=== PATIENT | female | born 1940 | race Asian ===

== ENCOUNTER 2016-12-12 07:40 | Outpatient (CLI) | payer OTHER ==
[~2016-12-12 07:40] MED LIST: ASA LOW STR81 MG PO; LEVOTHROID50 MCG OR; LISITAB PO; NAPR500T40 PO; OMEPRAZOLE40 MG OR; OXYB5TAB56 PO; ULTRACET1 TAB OR
[2016-12-12 08:40] LABS: PLATELET COUNT 190 K/uL (152-353)
[2016-12-12 09:05] LABS: POTASSIUM 3.7 mmol/L (3.6-5.2); SODIUM 140 mmol/L (136-145)
== END 2016-12-12 19:43 | disposition home or self-care (01) ==
LOC: LABW 07:40
PROVIDERS: Internal Medicine
DX: E11.9 Type 2 diabetes mellitus without complications (principal)
CPT/HCPCS: 36415; 80053; 80061; 83036; 84443; 85027

== ENCOUNTER 2017-01-10 08:44 | Outpatient (CLI) | payer OTHER | END 2017-01-10 19:08 | disposition home or self-care (01) | LOC: LABW 08:44 | DX: Z86.010 Personal history of colon polyps (principal) | CPT/HCPCS: 82272 ==

== ENCOUNTER 2017-02-13 10:21 | Outpatient (CLI) | payer OTHER | END 2017-02-13 19:16 | disposition home or self-care (01) | LOC: RAD 10:21 | DX: M25.551 Pain in right hip (principal); M25.552 Pain in left hip; M54.5 Low back pain ==

== ENCOUNTER 2017-02-19 11:23 | Outpatient (CLI) | payer OTHER | END 2017-02-19 12:30 | disposition home or self-care (01) | LOC: LABW 11:23 | DX: B35.1 Tinea unguium (principal) | CPT/HCPCS: 36415; 84450; 84460 ==

== ENCOUNTER 2017-02-24 09:00 | Outpatient (CLI) | payer OTHER ==
[2017-02-24 09:11] LABS: PLATELET COUNT 182 K/uL (152-353)
== END 2017-02-24 10:05 | disposition home or self-care (01) ==
LOC: LABW 09:00
PROVIDERS: Internal Medicine Hematology & Oncology
DX: D64.89 Other specified anemias (principal)
CPT/HCPCS: 36415; 85027

== ENCOUNTER 2017-03-31 08:04 | Outpatient (CLI) | payer OTHER | END 2017-03-31 09:05 | disposition home or self-care (01) | LOC: LABW 08:04 | DX: B35.1 Tinea unguium (principal) | CPT/HCPCS: 36415; 84450; 84460 ==

== ENCOUNTER 2017-05-05 08:15 | Outpatient (CLI) | payer OTHER ==
[2017-05-05 08:42] LABS: PLATELET COUNT 206 K/uL (152-353)
[2017-05-05 09:09] LABS: POTASSIUM 3.5 mmol/L (3.6-5.2)
== END 2017-05-05 19:29 | disposition home or self-care (01) ==
LOC: LABW 08:15
PROVIDERS: Internal Medicine
DX: E11.9 Type 2 diabetes mellitus without complications (principal); E03.8 Other specified hypothyroidism
CPT/HCPCS: 36415; 80053; 80061; 81000; 82043; 82570; 83036; 84439; 84443; 85027

== ENCOUNTER 2017-05-30 08:57 | Outpatient (CLI) | payer OTHER | END 2017-05-30 10:30 | disposition home or self-care (01) | LOC: MAMMO 08:57 | DX: Z12.31 Encounter for screening mammogram for malignant neoplasm of breast (principal) ==

== ENCOUNTER 2017-08-25 09:19 | Outpatient (CLI) | payer OTHER ==
[2017-08-25 09:36] LABS: PLATELET COUNT 161 K/uL (152-353)
[2017-08-25 09:39] LABS: POTASSIUM 3.7 mmol/L (3.6-5.2)
== END 2017-08-25 19:16 | disposition home or self-care (01) ==
LOC: LABW 09:19
PROVIDERS: Internal Medicine Hematology & Oncology
DX: D70.8 Other neutropenia (principal)
CPT/HCPCS: 36415; 80053; 85027

== ENCOUNTER 2017-10-16 13:57 | Outpatient (CLI) | payer OTHER ==
[2017-10-16 14:16] LABS: PLATELET COUNT 212 K/uL (152-353)
[2017-10-16 14:42] LABS: POTASSIUM 3.9 mmol/L (3.6-5.2)
== END 2017-10-16 19:22 | disposition home or self-care (01) ==
LOC: LAB 13:57
PROVIDERS: Internal Medicine
DX: E11.9 Type 2 diabetes mellitus without complications (principal)
CPT/HCPCS: 80053; 80061; 81000; 83036; 84439; 84443; 85027

== ENCOUNTER 2017-11-17 08:35 | Outpatient (CLI) | payer OTHER | END 2017-11-17 19:18 | disposition home or self-care (01) | LOC: RAD 08:35 | DX: M17.0 Bilateral primary osteoarthritis of knee (principal); M19.071 Primary osteoarthritis, right ankle and foot; M19.072 Primary osteoarthritis, left ankle and foot ==

== ENCOUNTER 2018-02-24 09:55 | Outpatient (CLI) | payer OTHER ==
[2018-02-24 10:43] LABS: PLATELET COUNT 190 K/uL (152-353)
[2018-02-24 11:03] LABS: POTASSIUM 3.8 mmol/L (3.6-5.2)
== END 2018-02-24 22:48 | disposition home or self-care (01) ==
LOC: LABW 09:55
DX: G47.8 Other sleep disorders (principal); Z79.891 Long term (current) use of opiate analgesic; M17.0 Bilateral primary osteoarthritis of knee; D70.8 Other neutropenia
CPT/HCPCS: 36415; 80053; 82248; 85027; 85651; 86140

== ENCOUNTER 2018-06-05 11:09 | Outpatient (CLI) | payer OTHER | END 2018-06-05 22:19 | disposition home or self-care (01) | LOC: MAMMO 11:09 | DX: Z12.31 Encounter for screening mammogram for malignant neoplasm of breast (principal) ==

== ENCOUNTER 2018-08-31 09:51 | Outpatient (CLI) | payer OTHER ==
[2018-08-31 10:50] LABS: PLATELET COUNT 200 K/uL (152-353)
== END 2018-08-31 19:07 | disposition home or self-care (01) ==
LOC: LABW 09:51
PROVIDERS: Nurse Practitioner Family
DX: D70.8 Other neutropenia (principal)
CPT/HCPCS: 36415; 80053; 85027

== ENCOUNTER 2018-09-17 08:58 | Outpatient (CLI) | payer OTHER | END 2018-09-17 22:30 | disposition home or self-care (01) | LOC: US 08:58 | DX: Z13.6 Encounter for screening for cardiovascular disorders (principal) ==

== ENCOUNTER 2018-10-26 09:55 | Outpatient (CLI) | payer OTHER ==
[2018-10-26 10:36] LABS: PLATELET COUNT 196 K/uL (152-353)
[2018-10-26 13:09] LABS: POTASSIUM 3.6 mmol/L (3.6-5.2)
== END 2018-10-26 19:41 | disposition home or self-care (01) ==
LOC: LABW 09:55
PROVIDERS: Internal Medicine
DX: E11.9 Type 2 diabetes mellitus without complications (principal)
CPT/HCPCS: 80053; 80061; 81000; 82043; 82570; 83036; 84439; 84443; 85027

== ENCOUNTER 2018-11-20 10:53 | Outpatient (CLI) | payer OTHER | END 2018-11-20 22:38 | disposition home or self-care (01) | LOC: RAD 10:53 | DX: M85.89 Other specified disorders of bone density and structure, multiple sites (principal) ==

== ENCOUNTER 2019-01-13 10:46 | Day surgery (SDC) | payer OTHER ==
[2019-01-13 11:38] LABS: PLATELET COUNT 203 K/uL (152-353)
[2019-01-13 11:46] LABS: POTASSIUM 3.1 mmol/L (3.6-5.2)
== END 2019-01-13 14:30 | disposition home or self-care (01) ==
LOC: OR 10:46
PROVIDERS: Internal Medicine Gastroenterology
PROC: 0DB68ZZ Excision of Stomach, Via Natural or Artificial Opening Endoscopic (ICD-10-PCS; principal; 2019-01-13)
PROC: 0D738ZZ Dilation of Lower Esophagus, Via Natural or Artificial Opening Endoscopic (ICD-10-PCS; 2019-01-13)
DX: K21.0 Gastro-esophageal reflux disease with esophagitis (principal); K22.2 Esophageal obstruction; K44.9 Diaphragmatic hernia without obstruction or gangrene; K29.50 Unspecified chronic gastritis without bleeding; B96.81 Helicobacter pylori [H. pylori] as the cause of diseases classified elsewhere; R13.19 Other dysphagia; R10.13 Epigastric pain
CPT/HCPCS: 80053; 85027; J2001; J2405; J2704

== ENCOUNTER 2019-03-10 11:03 | Outpatient (CLI) | payer OTHER ==
[2019-03-10 11:25] LABS: PLATELET COUNT 180 K/uL (152-353)
[2019-03-10 11:47] LABS: POTASSIUM 4.1 mmol/L (3.6-5.2)
== END 2019-03-10 23:28 | disposition home or self-care (01) ==
LOC: LABW 11:03
PROVIDERS: Nurse Practitioner Family
DX: E56.8 Deficiency of other vitamins (principal); M19.042 Primary osteoarthritis, left hand; M19.072 Primary osteoarthritis, left ankle and foot; M17.0 Bilateral primary osteoarthritis of knee
CPT/HCPCS: 36415; 80053; 82306; 82330; 83970; 85027; 85651; 86140

== ENCOUNTER 2019-05-28 11:36 | Outpatient (CLI) | payer OTHER ==
[2019-05-28 12:08] LABS: PLATELET COUNT 181 K/uL (152-353)
[2019-05-28 12:26] LABS: POTASSIUM 4.1 mmol/L (3.6-5.2)
== END 2019-05-28 22:55 | disposition home or self-care (01) ==
LOC: LAB 11:36
PROVIDERS: Internal Medicine
DX: E11.9 Type 2 diabetes mellitus without complications (principal); E03.8 Other specified hypothyroidism
CPT/HCPCS: 80053; 80061; 81000; 83036; 84439; 84443; 85027

== ENCOUNTER 2019-06-07 09:49 | Outpatient (CLI) | payer OTHER | END 2019-06-07 23:17 | disposition home or self-care (01) | LOC: MAMMO 09:49 | DX: Z12.31 Encounter for screening mammogram for malignant neoplasm of breast (principal) ==

== ENCOUNTER 2019-07-26 10:20 | Outpatient (CLI) | payer OTHER ==
[2019-07-26 10:34] LABS: PLATELET COUNT 176 K/uL (152-353)
== END 2019-07-26 19:15 | disposition home or self-care (01) ==
LOC: LAB 10:20
PROVIDERS: Physician Assistant
DX: R63.4 Abnormal weight loss (principal); E86.0 Dehydration; E53.8 Deficiency of other specified B group vitamins; E55.9 Vitamin D deficiency, unspecified
CPT/HCPCS: 80053; 82306; 82607; 84443; 85027

== ENCOUNTER 2019-08-20 12:26 | Outpatient (CLI) | payer OTHER | END 2019-08-20 19:53 | disposition home or self-care (01) | LOC: LABW 12:26 | DX: K64.0 First degree hemorrhoids (principal) | CPT/HCPCS: 82272 ==

== ENCOUNTER 2019-08-30 09:16 | Outpatient (CLI) | payer OTHER ==
[2019-08-30 09:43] LABS: POTASSIUM 3.7 mmol/L (3.6-5.2)
[2019-08-30 09:49] LABS: PLATELET COUNT 195 K/uL (152-353)
== END 2019-08-30 22:55 | disposition home or self-care (01) ==
LOC: LABW 09:16
PROVIDERS: Nurse Practitioner Family
DX: D70.8 Other neutropenia (principal)
CPT/HCPCS: 36415; 80053; 85027

== ENCOUNTER 2020-02-10 15:33 | Outpatient (CLI) | payer OTHER ==
[2020-02-10 16:26] LABS: POTASSIUM 3.9 mmol/L (3.6-5.2)
[2020-02-10 18:12] LABS: PLATELET COUNT 179 K/uL (152-353)
== END 2020-02-10 19:00 | disposition home or self-care (01) ==
LOC: LAB 15:33
PROVIDERS: Internal Medicine
DX: E11.9 Type 2 diabetes mellitus without complications (principal); E03.9 Hypothyroidism, unspecified; I10 Essential (primary) hypertension
CPT/HCPCS: 80053; 80061; 81000; 82043; 82306; 82570; 83036; 84439; 84443; 85027

== ENCOUNTER 2020-02-22 09:08 | Outpatient (CLI) | payer OTHER ==
[2020-02-22 09:44] LABS: POTASSIUM 3.4 mmol/L (3.6-5.2)
[2020-02-22 09:55] LABS: PLATELET COUNT 155 K/uL (152-353)
== END 2020-02-22 23:52 | disposition home or self-care (01) ==
LOC: LABW 09:08
PROVIDERS: Nurse Practitioner Adult Health
DX: D70.8 Other neutropenia (principal)
CPT/HCPCS: 36415; 80053; 82607; 82746; 85027; 86038

== ENCOUNTER 2020-03-23 09:27 | Outpatient (CLI) | payer OTHER | END 2020-03-23 21:50 | disposition home or self-care (01) | LOC: RAD 09:27 | DX: M19.041 Primary osteoarthritis, right hand (principal); M19.042 Primary osteoarthritis, left hand; M19.071 Primary osteoarthritis, right ankle and foot; M19.072 Primary osteoarthritis, left ankle and foot; M35.01 Sjogren syndrome with keratoconjunctivitis ==

== ENCOUNTER 2020-04-03 09:21 | Outpatient (CLI) | payer OTHER | END 2020-04-03 19:27 | disposition home or self-care (01) | LOC: RAD 09:21 | DX: E55.9 Vitamin D deficiency, unspecified (principal); E56.8 Deficiency of other vitamins; M16.0 Bilateral primary osteoarthritis of hip; M17.0 Bilateral primary osteoarthritis of knee; M19.041 Primary osteoarthritis, right hand; M19.042 Primary osteoarthritis, left hand; M19.071 Primary osteoarthritis, right ankle and foot; M19.072 Primary osteoarthritis, left ankle and foot; M47.816 Spondylosis without myelopathy or radiculopathy, lumbar region; R26.89 Other abnormalities of gait and mobility; Z79.899 Other long term (current) drug therapy ==

== ENCOUNTER 2020-04-21 13:35 | Outpatient (CLI) | payer OTHER | END 2020-04-21 19:33 | disposition home or self-care (01) | LOC: RESP 13:35 | DX: M19.041 Primary osteoarthritis, right hand (principal); M19.042 Primary osteoarthritis, left hand; M19.071 Primary osteoarthritis, right ankle and foot; M19.072 Primary osteoarthritis, left ankle and foot; M35.01 Sjogren syndrome with keratoconjunctivitis; Z79.899 Other long term (current) drug therapy ==

== ENCOUNTER 2020-06-26 09:27 | Outpatient (CLI) | payer OTHER | END 2020-06-26 19:10 | disposition home or self-care (01) | LOC: MAMMO 09:27 | DX: Z12.31 Encounter for screening mammogram for malignant neoplasm of breast (principal) ==

== ENCOUNTER 2020-08-04 09:46 | Outpatient (CLI) | payer OTHER ==
[2020-08-04 10:34] LABS: POTASSIUM 3.9 mmol/L (3.6-5.2)
== END 2020-08-04 19:29 | disposition home or self-care (01) ==
LOC: LABW 09:46
PROVIDERS: ATTEND Internal Medicine
DX: E11.9 Type 2 diabetes mellitus without complications (principal); E03.8 Other specified hypothyroidism
CPT/HCPCS: 36415; 80053; 80061; 81000; 82043; 82570; 83036; 84439; 84443

== ENCOUNTER 2020-09-25 13:37 | Outpatient (CLI) | payer OTHER | END 2020-09-25 20:45 | disposition home or self-care (01) | LOC: RAD 13:37 | PROVIDERS: ATTEND Internal Medicine Gastroenterology | DX: M25.552 Pain in left hip (principal); K64.0 First degree hemorrhoids | CPT/HCPCS: 82272 ==

== ENCOUNTER 2020-10-10 12:18 | Outpatient (CLI) | payer OTHER | END 2020-10-10 21:34 | disposition home or self-care (01) | LOC: LABW 12:18 | PROVIDERS: ATTEND Internal Medicine Gastroenterology | DX: R19.5 Other fecal abnormalities (principal) | CPT/HCPCS: 82272 ==

== ENCOUNTER 2020-11-24 10:00 | Outpatient (CLI) | payer OTHER ==
[2020-11-24 10:30] LABS: PLATELET COUNT 157 K/uL (152-353)
[2020-11-24 10:41] LABS: POTASSIUM 3.9 mmol/L (3.6-5.2)
== END 2020-11-24 21:37 | disposition home or self-care (01) ==
LOC: LABW 10:00
PROVIDERS: ATTEND Nurse Practitioner Adult Health
DX: D70.8 Other neutropenia (principal)
CPT/HCPCS: 36415; 80053; 85027

== ENCOUNTER 2020-11-29 09:56 | Outpatient (CLI) | payer OTHER ==
[2020-11-29 10:32] LABS: PLATELET COUNT 181 K/uL (152-353)
== END 2020-11-29 22:09 | disposition home or self-care (01) ==
LOC: LABW 09:56
PROVIDERS: ATTEND Internal Medicine
DX: Z00.00 Encounter for general adult medical examination without abnormal findings (principal); I10 Essential (primary) hypertension; E11.9 Type 2 diabetes mellitus without complications; E03.8 Other specified hypothyroidism; Z13.820 Encounter for screening for osteoporosis; E55.9 Vitamin D deficiency, unspecified; N95.8 Other specified menopausal and perimenopausal disorders
CPT/HCPCS: 36415; 80053; 80061; 81000; 82306; 83036; 84439; 84443; 85027

== ENCOUNTER 2021-05-15 12:30 | Outpatient (CLI) | payer OTHER | END 2021-05-15 20:53 | disposition home or self-care (01) | LOC: RAD 12:30 | PROVIDERS: ATTEND Nurse Practitioner Family | DX: M17.11 Unilateral primary osteoarthritis, right knee (principal); M17.12 Unilateral primary osteoarthritis, left knee ==

== ENCOUNTER 2021-07-03 10:59 | Outpatient (CLI) | payer OTHER | END 2021-07-03 21:54 | disposition home or self-care (01) | LOC: MAMMO 10:59 | PROVIDERS: ATTEND Internal Medicine | DX: Z12.31 Encounter for screening mammogram for malignant neoplasm of breast (principal); G47.8 Other sleep disorders; M35.01 Sjogren syndrome with keratoconjunctivitis; Z79.891 Long term (current) use of opiate analgesic ==

== ENCOUNTER 2021-07-19 13:00 | Outpatient (CLI) | payer OTHER | END 2021-07-19 19:02 | disposition home or self-care (01) | LOC: RESP 13:00 | PROVIDERS: ATTEND Nurse Practitioner Family | DX: G47.8 Other sleep disorders (principal); M35.01 Sjogren syndrome with keratoconjunctivitis; Z79.891 Long term (current) use of opiate analgesic; Z79.899 Other long term (current) drug therapy ==

== ENCOUNTER → 2021-08-27 | Outpatient (CLI) | payer OTHER ==
[2021-08-27 11:46] LABS: PLATELET COUNT 189 K/uL (152-353)
[2021-08-27 11:57] LABS: POTASSIUM 3.8 mmol/L (3.6-5.2)
== END ==
LOC: LABW 11:27
PROVIDERS: ATTEND Nurse Practitioner Family
DX: D70.8 Other neutropenia (principal)
CPT/HCPCS: 36415; 80053; 85027

== ENCOUNTER 2021-10-26 13:46 | Outpatient (CLI) | payer OTHER ==
[2021-10-26 16:38] LABS: PLATELET COUNT 191 K/uL (152-353)
[2021-10-26 18:10] LABS: POTASSIUM 3.9 mmol/L (3.6-5.2)
== END 2021-10-26 19:59 | disposition home or self-care (01) ==
LOC: LAB 13:46
PROVIDERS: ATTEND Internal Medicine
DX: E11.9 Type 2 diabetes mellitus without complications (principal)
CPT/HCPCS: 80053; 80061; 83036; 84439; 84443; 85027

== ENCOUNTER 2022-01-29 14:42 | Outpatient (CLI) | payer OTHER ==
[2022-01-29 14:59] LABS: PLATELET COUNT 190 K/uL (152-353)
[2022-01-29 15:34] LABS: POTASSIUM 4.1 mmol/L (3.6-5.2)
== END 2022-01-29 19:06 | disposition home or self-care (01) ==
LOC: LAB 14:42
PROVIDERS: ATTEND Internal Medicine
DX: E11.9 Type 2 diabetes mellitus without complications (principal); E03.8 Other specified hypothyroidism
CPT/HCPCS: 80053; 80061; 81000; 83036; 84439; 84443; 85027

== ENCOUNTER 2022-03-25 10:35 | Outpatient (CLI) | payer OTHER | END 2022-03-25 19:00 | disposition home or self-care (01) | LOC: LABW 10:35 | PROVIDERS: ATTEND Internal Medicine Gastroenterology | DX: K64.0 First degree hemorrhoids (principal) | CPT/HCPCS: 82272 ==

== ENCOUNTER 2022-06-03 12:43 | Outpatient (CLI) | payer OTHER ==
[2022-06-03 13:12] LABS: PLATELET COUNT 207 K/uL (152-353)
[2022-06-03 13:26] LABS: POTASSIUM 5.1 mmol/L (3.6-5.2)
== END 2022-06-03 20:34 | disposition home or self-care (01) ==
LOC: LABW 12:43
PROVIDERS: ATTEND Internal Medicine Medical Oncology
DX: D70.8 Other neutropenia (principal)
CPT/HCPCS: 36415; 80053; 85027

== ENCOUNTER 2022-07-11 10:53 | Outpatient (CLI) | payer OTHER | END 2022-07-11 23:10 | disposition home or self-care (01) | LOC: MAMMO 10:53 | PROVIDERS: ATTEND Internal Medicine | DX: Z12.31 Encounter for screening mammogram for malignant neoplasm of breast (principal) ==

== ENCOUNTER 2022-07-29 13:28 | Outpatient (CLI) | payer OTHER | END 2022-07-29 20:02 | disposition home or self-care (01) | LOC: RESP 13:28 | PROVIDERS: ATTEND Nurse Practitioner Family | DX: M16.0 Bilateral primary osteoarthritis of hip (principal); M17.0 Bilateral primary osteoarthritis of knee; M35.01 Sjogren syndrome with keratoconjunctivitis; Z98.891 History of uterine scar from previous surgery; Z79.899 Other long term (current) drug therapy ==

== ENCOUNTER 2022-07-31 15:17 | Outpatient (CLI) | payer OTHER ==
[2022-07-31 15:52] LABS: PLATELET COUNT 204 K/uL (152-353)
[2022-07-31 16:11] LABS: POTASSIUM 3.8 mmol/L (3.6-5.2)
== END 2022-07-31 23:59 | disposition home or self-care (01) ==
LOC: LAB 15:17
PROVIDERS: ATTEND Internal Medicine
DX: E03.8 Other specified hypothyroidism (principal); E11.9 Type 2 diabetes mellitus without complications
CPT/HCPCS: 80053; 80061; 83036; 84439; 84443; 85027

== ENCOUNTER 2022-12-02 13:49 | Outpatient (CLI) | payer OTHER ==
[2022-12-02 14:23] LABS: PLATELET COUNT 190 K/uL (152-353)
[2022-12-02 14:44] LABS: POTASSIUM 3.9 mmol/L (3.6-5.2)
== END 2022-12-02 21:42 | disposition home or self-care (01) ==
LOC: LAB 13:49
PROVIDERS: ATTEND Internal Medicine
DX: Z00.00 Encounter for general adult medical examination without abnormal findings (principal); Z13.820 Encounter for screening for osteoporosis; E55.9 Vitamin D deficiency, unspecified; E11.9 Type 2 diabetes mellitus without complications; R82.998 Other abnormal findings in urine
CPT/HCPCS: 80053; 80061; 81000; 82306; 83036; 84439; 84443; 85027; 87077; 87086; 87088; 87186

== ENCOUNTER 2023-02-12 13:02 | Outpatient (CLI) | payer OTHER | END 2023-02-12 18:59 | LOC: RAD 13:02 | PROVIDERS: ATTEND Nurse Practitioner Family | DX: M35.05 Sjogren syndrome with inflammatory arthritis (principal); Z79.891 Long term (current) use of opiate analgesic; N95.8 Other specified menopausal and perimenopausal disorders ==

== ENCOUNTER 2023-03-03 10:53 | Outpatient (CLI) | payer OTHER ==
[2023-03-03 11:10] LABS: PLATELET COUNT 191 K/uL (152-353)
[2023-03-03 11:19] LABS: POTASSIUM 3.6 mmol/L (3.6-5.2)
== END 2023-03-03 18:58 | disposition home or self-care (01) ==
LOC: LABW 10:53
PROVIDERS: ATTEND Nurse Practitioner Family
DX: D70.8 Other neutropenia (principal)
CPT/HCPCS: 36415; 80053; 85027

== ENCOUNTER 2023-04-25 11:51 | Outpatient (CLI) | payer OTHER | END 2023-04-25 19:16 | disposition home or self-care (01) | LOC: RAD 11:51 | PROVIDERS: ATTEND Nurse Practitioner Family | DX: M17.0 Bilateral primary osteoarthritis of knee (principal); M35.05 Sjogren syndrome with inflammatory arthritis; M47.816 Spondylosis without myelopathy or radiculopathy, lumbar region; M54.51 Vertebrogenic low back pain; Z79.899 Other long term (current) drug therapy ==

== ENCOUNTER 2023-05-21 13:59 | Outpatient (CLI) | payer OTHER | END 2023-05-21 19:08 | disposition home or self-care (01) | LOC: RAD 13:59 | PROVIDERS: ATTEND Student in an Organized Health Care Education/Training Program | DX: M48.062 Spinal stenosis, lumbar region with neurogenic claudication (principal); M54.16 Radiculopathy, lumbar region; M47.816 Spondylosis without myelopathy or radiculopathy, lumbar region ==

== ENCOUNTER 2023-06-02 12:53 | Outpatient (CLI) | payer OTHER ==
[2023-06-02 13:16] LABS: PLATELET COUNT 221 K/uL (152-353)
== END 2023-06-02 21:26 | disposition home or self-care (01) ==
LOC: LAB 12:53
PROVIDERS: ATTEND Internal Medicine
DX: E11.9 Type 2 diabetes mellitus without complications (principal)
CPT/HCPCS: 80053; 80061; 81002; 83036; 84439; 84443; 85027

== ENCOUNTER 2023-06-03 12:34 | Outpatient (CLI) | payer OTHER | END 2023-06-03 20:47 | disposition home or self-care (01) | LOC: MRI 12:34 | PROVIDERS: ATTEND Student in an Organized Health Care Education/Training Program | DX: M48.062 Spinal stenosis, lumbar region with neurogenic claudication (principal); M54.16 Radiculopathy, lumbar region; M47.816 Spondylosis without myelopathy or radiculopathy, lumbar region ==